=== PATIENT | male | born 1930 | race Caucasian/White ===

== ENCOUNTER 2017-11-23 18:51 | Inpatient (IN) | payer MEDICARE, OTHER ==
[2017-11-23 19:48] LABS: Hemoglobin 13.2 g/dL (14.0-18.0); Mean Corpuscular HGB CONC 33.3 g/dL (32.0-36.0); Mean Corpuscular Hemoglobin 35.3 pg (27.0-31.0); Mean Platelet Volume 8.9 fL (7.4-10.4); Platelet Count 139 thou/uL (130-400); RBC Distribution Width 12.4 % (11.5-14.5); Red Blood Cell (RBC) Count 3.73 mill/uL (4.70-6.10)
[2017-11-23 20:13] LABS: BUN (Urea Nitrogen) 25 mg/dL (8.4-25.7); Calc. Creatinine Clearance 0 mL/min (70-130); Calcium 9.6 mg/dL (7.8-10.44); Carbon Dioxide 25 mmol/L (23-31); Chloride 99 mmol/L (98-107); Estimated GFR-MDRD 44; Glucose 146 mg/dL (83-110); Sodium 135 mmol/L (136-145)
[2017-11-23 20:20] LABS: Potassium 3.8 mmol/L (3.5-5.1)
[2017-11-23 20:22] LABS: #Basophils 0.1 thou/uL (0.0-0.2); #Eosinphils 0.2 thou/uL (0.0-0.7); #Lymphocytes 2.2 thou/uL (1.20-3.40); #Monocytes 0.7 thou/uL (0.11-0.59); #Neutrophils 2.8 thou/uL (1.40-6.50); %Basophils 1.2 % (0.0-1.0); %Eosinophils 3.9 % (0.0-10.0); %Lymphocytes 36.6 % (21.0-51.0); %Monocytes 11.3 % (0.0-10.0); Anion Gap 15 mmol/L (10-20); PLT Morphology Comment Appears Adequate
[2017-11-23] MEDS ORDERED: Acetaminophen 325 MG TAB PO PRN (21:05)
[2017-11-23 21:06] LABS: Troponin I 12.373 ng/mL (< 0.028)
[2017-11-23 22:03] VITALS: BMI 33.1
[2017-11-23] MEDS ORDERED: Enoxaparin Sodium 120 MG/0.8 ML SYRINGE SC SCH (22:30)
[2017-11-23] MEDS: Nitroglycerin 2% Ointment 1 INCH/1 GM Packet TOP SCH (22:34)
[2017-11-23] MEDS ORDERED: Aspirin 325 mg Enteric Coated Tablet PO SCH (23:00)
[2017-11-23] MEDS ORDERED: TRAMADOL HCL PO PRN (23:41)
[2017-11-23] MEDS ORDERED: Acetaminophen 500 MG TAB PO PRN (23:41)
[2017-11-23] MEDS ORDERED: ACETAMINOPHEN PO PRN (23:41)
[2017-11-23] MEDS ORDERED: Ondansetron ODT 4 MG TAB PO PRN (23:41)
[2017-11-23] MEDS ORDERED: Dextrose 50% Abboject 50 ML SYRINGE SLOW IVP PRN (23:41)
[2017-11-23] MEDS ORDERED: Ondansetron HCl/PF 4 MG/2 ML Vial IVP PRN (23:41)
[2017-11-23] MEDS ORDERED: hydrALAZINE 20 MG/ML VIAL SLOW IVP PRN (23:41)
[2017-11-23] MEDS ORDERED: cloNIDine 0.1 MG TAB PO PRN (23:41)
[2017-11-23] MEDS ORDERED: Dextrose 5% in Water 1,000 ML IV PRN (23:41)
[2017-11-23] MEDS ORDERED: HumaLOG 300 UNITS/3 ML VIAL SC PRN ×2 (23:41)
[2017-11-24] MEDS ORDERED: Acetaminophen 325 MG TAB PO PRN (00:02)
[2017-11-24] MEDS ORDERED: traMADol HCl 50 MG TAB PO PRN (00:02)
[2017-11-24 01:14] LABS: Troponin I 18.472 ng/mL (< 0.028)
--- NOTE | 2017-11-24 03:54 | HP ---
DATE OF ADMISSION: 11/23/2017 PRIMARY CARE PROVDER: Sriram Hardy MD CHIEF COMPLAINT: Chest and left arm pain. HISTORY OF PRESENT ILLNESS: This is an 86-year-old male, who presented to [facility] Department experiencing crushing midsternal chest pain with radiation to the left upper extremity beginning approximately 1310 hours on 11/23/2017. The patient states the pain occurred while at res t, sitting in his chair at home, increasing despite moving his arm or adjusting his position. The pa vale states the pain lasted until approximately 1500 hours, at which point, he presented to the [facility] room for evaluation. The patient was treated with sublingual and topical nitroglycerin, and st ates overall his pain had resolved. The patient denied any increased activity level and states that his overall activity level has actually decreased since time frame. 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 The patient denies any known personal history of coronary artery disease, prior heart catheterizations, or evaluation for same. The patient is followed by a agriculture technician of the [facility] and was slated for a transthoracic echocardiogram on 11/24/2017. The patient sta pamela his overall energy level and breathing have been labored and difficult since the hol idays in 2016. The patient is unsure of the reason, but states overall decreased energy level and ra pid shortness of breath with exertion. The patient denied any specific increased lower extremity jovanna ma and states he has chronic swelling of his lower extremities and taking Bumex daily. The patient d oes state that he was treated for a suspected bronchitis in late 09/2017 with antibiotics, prednisone , and metered dose inhalers. The patient denied any associated fever, chills, cough, congestion, or exposure history. The patient denied any recent surgical interventions. In the emergency room, the patient received topical and sublingual nitroglycerin, as well as oxygen supplementation. The patien t also received aspirin 324 mg and transferred to [facility] for further evalu ation. Metabolic evaluation in the emergency room showed an overall troponin trending from 0.2 range to 12.4. The patient currently being admitted for [id number] myocardial infarction. PAST MEDICAL HISTORY: 1. Diabetes mellitus type 2. 2. Osteoarthritis. 3. Hypertension. 4. Chronic lower extremity edema with venous stasis changes. 5. Hyperlipidemia. 6. Diverticulosis. 7. Carpal tunnel syndrome bilaterally. 8. History of deep venous thrombosis of left lower extremity, status post [place] filter placemen t. 9. Chronic atrial fibrillation with chronic anticoagulation with Coumadin. PAST SURGICAL HISTORY: 1. Status post right total knee arthroplasty. 2. Status post carpal tunnel release bilaterally. 3. Status post left total knee arthroplasty. 4. Status post total right hip arthroplasty. CURRENT MEDICATIONS: 1. Bumex 1 mg 1 tab p.o. daily. 2. Calcium carbonate 600 mg p.o. daily. 3. Carvedilol 3.125 mg p.o. b.i.d. 4. Vitamin D3, 50,000 units p.o. p.r.n. 5. Vitamin B12, 1000 mcg intramuscularly every 28 days. 6. Doxycycline 100 mg 1 tab p.o. daily. 7. Chondroitin 1 tablet p.o. daily. 8. Actos 15 mg p.o. daily. 9. Potassium chloride 10 mEq 1 tab p.o. daily. 10. Janumet 50/500 mg 1 tab p.o. b.i.d. 11. Tramadol/acetaminophen 37.5/325 mg 1 tab p.o. q.6 hours p.r.n. pain. 12. Travatan 0.004% ophthalmic drops, 1 drop to each eye at bedtime. 13. Coumadin 5 mg except Tuesday and and 2.5 mg on Tuesday. ALLERGIES: CODEINE. FAMILY HISTORY: No inheritable diseases per patient report. SOCIAL HISTORY: The patient is and resides in [place], [place]. Retired. Functional of [facility] activities of daily living. No current alcohol, tobacco, or illicit drug use. REVIEW OF SYSTEMS: The following complete review of systems was negative, unless otherwise mentioned in the HPI or below: Constitutional: Weight loss or gain, ability to conduct usual activities. Skin: Rash, itching. Eyes: Double vision, pain. ENT/Mouth: Nose bleeding, neck stiffness, pain, tenderness. Cardiovascular: Palpitations, dyspnea on exertion, orthopnea. Respiratory: Shortness of breath, wheezing, cough, hemoptysis, fever or night sweats. Gastrointestinal: Poor appetite, abdominal pain, heartburn, nausea, vomiting, constipation, or diarr hea. Genitourinary: Urgency, frequency, dysuria, nocturia. Musculoskeletal: Pain, swelling. Neurologic/Psychiatric: Anxiety, depression. Allergy/Immunologic: Skin rash, bleeding tendency. Otherwise negative except as stated per HPI. PHYSICAL EXAMINATION: VITAL SIGNS: On admission, blood pressure 138/90, pulse 80, respiratory rate 20, temperature 98.6 de grees Fahrenheit, O2 saturation 99% on room air. GENERAL APPEARANCE: This is an 86-year-old male, alert and oriented x3, pleasant, conversa nt, in no acute distress. HEENT: Pupils are equal, round, and reactive to light and accommodation. Extraocular muscles are in tact. No scleral icterus. No conjunctival injection. Nares patent. OP is clear. Teeth in fair re pair. NECK: Supple. No cervical adenopathy. No thyromegaly. No carotid bruits. No JVD appreciated. Ce rvical spine with full active and passive range of motion. CHEST: Diminished breath sounds in the bases bilaterally. CARDIOVASCULAR: S1, S2 with irregular rate and rhythm. ABDOMEN: Rounded, soft, nontender, and nondistended. Bowel sounds are positive in all four quadrant s. There is no hepatosplenomegaly. No abdominal bruits. No rebound or guarding appreciated. EXTREMITIES: Warm and dry with fair turgor. Pitting edema to the proximal shins with venous stasis changes to bilateral lower extremities. Pulses are diminished and palpable distally at the dorsalis pedis and posterior tibial arteries. Capillary refill is less than 2 seconds. NEUROLOGIC: Cranial nerves II-XII are grossly intact. No focal or lateralizing signs are appreciate d. PERTINENT LABORATORY AND X-RAY FINDINGS: Creatinine 1.51. Estimated GFR of 44. Troponin I ranged b etween 0.215-12.4. LFTs within normal limits. CBC showed a white blood cell count of 6.82, hemoglob in 14, hematocrit 42, MCV 101, platelet count 148. PT 21.8, INR 1.8. D-dimer is 0.99. BNP is 911. EKG dated 11/23/2017 by my interpretation shows atrial fibrillation with heart rates in the 80s. Att enuated R waves noted in precordial leads. Left bundle branch block pattern noted. No acute ST-T wa ve changes appreciated. ASSESSMENT AND PLAN: 1. [id number] myocardial infarction. The patient will be admitted to the telemetry unit. We will initiate Lovenox 1 mg/kg subcutaneously q.12 hours. Continue aspirin 325 mg p.o. daily. Nitrog lycerin transdermally q.6 hours. Continue carvedilol 3.125 mg p.o. b.i.d. Check fasting lipid fawad torres in the a.m. Consult Cardiology Service for left heart catheterization. Continue oxygen at 2 lite rs per minute by nasal cannula. 3. Chronic atrial fibrillation with controlled ventricular response. Continue rate control measures with Coreg 3.125 mg p.o. b.i.d. Hold Coumadin. Continue Lovenox as outlined previously. Check 2D transthoracic echocardiogram in the a.m. 4. Chronic kidney disease, stage 3. We will avoid nephrotoxic agents and contrast media. Limit diu retic exposure. Hold metformin. Repeat creatinine in the a.m. 5. Left bundle branch block. Exact time course, unclear versus acute/subacute or chronic. We will obtain Cardiology consultation for evaluation and likely left heart catheterization. 6. Prophylaxis. Sequential compression devices while in bed. Pepcid 20 mg p.o. b.i.d. 7. Code status is FULL. Surrogate medical decision maker is patient's spouse.
[2017-11-24 04:59] LABS: INR-International Normal Ratio 1.9; Prothrombin Time 22.3 SEC (12.0-14.7)
[2017-11-24 05:06] LABS: Anion Gap 12 mmol/L (10-20); BUN (Urea Nitrogen) 24 mg/dL (8.4-25.7); Calc. Creatinine Clearance 60 mL/min (70-130); Calcium 9.5 mg/dL (7.8-10.44); Carbon Dioxide 29 mmol/L (23-31); Cardiac Risk 3.4 (Less than 4.5); Chloride 102 mmol/L (98-107); Cholesterol 141 mg/dl (< 200 Desired); Estimated GFR-MDRD 47; Glucose 157 mg/dL (83-110); HDL Cholesterol 41 mg/dL (>60 Neg Risk); LDL Cholesterol, Calculated 83 mg/dL; Potassium 4.1 mmol/L (3.5-5.1); Sodium 139 mmol/L (136-145); Triglycerides 87 mg/dL (Less than 150)
[2017-11-24 06:07] LABS: Band 2 % (5-11); Eosinophils 5 % (0-10); Hemoglobin 12.3 g/dL (14.0-18.0); Lymphocytes 33 % (21-51); MDiff Complete? YES; Macrocytosis SLIGHT = 6-15 cells (100X) (0-5/hpf); Mean Corpuscular HGB CONC 32.5 g/dL (32.0-36.0); Mean Corpuscular Hemoglobin 34.6 pg (27.0-31.0); Mean Platelet Volume 8.9 fL (7.4-10.4); Monocytes 7 % (0-10); Neutrophil 52 % (42-75); PLT Morphology Comment Appears Adequate; Platelet Count 131 thou/uL (130-400); RBC Distribution Width 12.4 % (11.5-14.5); Reactive Lymphocytes 1 % (0-10); Red Blood Cell (RBC) Count 3.56 mill/uL (4.70-6.10)
[2017-11-24] MEDS: Nitroglycerin 2% Ointment 1 INCH/1 GM Packet TOP SCH ×4 (06:10→21:58)
--- NOTE | 2017-11-24 07:49 | PDOC.PN ---
- Subjective Encounter Start Date: 11/24/17 Encounter Start Time: 07:47 Subjective: 100min chest kary with radiation to L arm yesterday - Objective Resuscitation Status: Resuscitation Status FULL:Full Resuscitation Vital Signs & Weight: Vital Signs (12 hours) Temp Pulse Resp BP BP BP Pulse Ox 11/24/17 06:35 82 18 133/88 100 11/24/17 04:29 97.7 F 65 18 120/86 98 11/23/17 23:41 80 18 97 11/23/17 23:34 97.2 F L 76 20 130/83 97 I&O: 11/23/17 11/24/17 11/25/17 06:59 06:59 06:59 Intake Total 360 Balance 360 Result Diagrams: 11/24/17 04:19 11/24/17 04:19 Phys Exam - Physical Examination Constitutional: NAD Neck: no JVD Respiratory: clear to auscultation bilateral Cardiovascular: irregular Gastrointestinal: soft, non-tender, positive bowel sounds Musculoskeletal: no edema Dx/Plan (1) ACS (acute coronary syndrome) Code(s): I24.9 - ACUTE ISCHEMIC HEART DISEASE, UNSPECIFIED Status: Acute (2) Atrial fibrillation Code(s): I48.91 - UNSPECIFIED ATRIAL FIBRILLATION Status: Chronic Qualifiers: Atrial fibrillation type: chronic Qualified Code(s): I48.2 - Chronic atrial fibrillation (3) DM type 2 causing CKD stage 3 Code(s): E11.22 - TYPE 2 DIABETES MELLITUS W DIABETIC CHRONIC KIDNEY DISEASE; N18.3 - CHRONIC KIDNEY DISEASE, STAGE 3 (MODERATE) Status: Chronic (4) HTN (hypertension) Code(s): I10 - ESSENTIAL (PRIMARY) HYPERTENSION Status: Acute Qualifiers: Hypertension type: essential hypertension Qualified Code(s): I10 - Essential (primary) hypertension (5) Left bundle branch block Code(s): I44.7 - LEFT BUNDLE-BRANCH BLOCK, UNSPECIFIED Status: Acute - Plan cardiology consult, discusssed with Dr Garber. patient will need cardiac -: cath. cont asa, coreg. accu/sss/etc * .
[2017-11-24] MEDS ORDERED: Communication Order-Pharmacy FS SCH (08:00)
[2017-11-24] MEDS ORDERED: Sodium Chloride 0.9% 1,000 ML IV SCH (08:00)
[2017-11-24] MEDS ORDERED: Bumetanide 1 MG TAB PO SCH (09:00)
[2017-11-24] MEDS ORDERED: Cyanocobalamin 1000 MCG/ML VIAL IM SCH (09:00)
[2017-11-24] MEDS ORDERED: Carvedilol 3.125 MG TAB PO SCH (09:00)
[2017-11-24] MEDS ORDERED: FLU VACC TS2017-18 (>65YR) 0.5 ML SYRINGE IM ONE (09:00)
[2017-11-24 11:22] LABS: INR-International Normal Ratio 1.7; Prothrombin Time 20.8 SEC (12.0-14.7)
[2017-11-24] MEDS: Doxycycline 100 MG CAP PO SCH (12:39)
[2017-11-24] MEDS: Aspirin 325 MG TAB PO SCH (12:39)
[2017-11-24] MEDS: Calcium Carbonate + Vit D 1 TAB PO SCH (12:39)
[2017-11-24] MEDS: Famotidine 20 MG TAB PO SCH ×2 (12:39→20:51)
[2017-11-24] MEDS: Potassium Chloride 10 MEQ TAB PO SCH (12:40)
[2017-11-24] MEDS ORDERED: Enoxaparin Sodium 100 MG/ML SYRINGE SC SCH (16:00)
--- NOTE | 2017-11-24 19:35 | CON ---
DATE OF CONSULTATION: 11/24/2017 REASON FOR CONSULTATION: Non-ST elevation myocardial infarction, congestive heart failure, atrial fi brillation. HISTORY OF PRESENT ILLNESS: Mr. Doran is a very pleasant 86-year-old gentleman. He had the onse t of severe pain across his chest yesterday. He said it lasted he thinks maybe for almost 2 hours, w ent away at 3:00. He went to the emergency room for evaluation. He was given sublingual and topical nitroglycerin. The pain resolved. He has been feeling well since then. He says before that he has noticed he has not been feeling as well since . He says he does not have as much energy . 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 The patient states he sees a systems accountant in [place], had an echocardiogram done recently he belie ves, but he is not completely sure about that. He noticed that he is becoming more short of breath with exertion and had some swelling of his lower extremities. He has been placed on Bumex at some point in the past. The patient also has a history of atrial fibrillation chronic for which he is on Coumadin. PAST MEDICAL HISTORY: 1. Diabetes. 2. Osteoarthritis. 3. Chronic edema. 4. Hyperlipidemia. 5. Diverticulosis. 6. History of deep venous thrombosis, has a [place] filter placed. 7. Chronic atrial fibrillation on Coumadin. PAST SURGICAL HISTORY: 1. Previous total right knee. 2. Left knee. 3. Right hip arthroplasty. MEDICATIONS: 1. Bumex 1 mg a day. 2. Carvedilol 3.125 mg twice a day. 3. Doxycycline. 4. Actos. 5. Coumadin. ALLERGIES: CODEINE. FAMILY HISTORY: No coronary disease at a young age. SOCIAL HISTORY: , resides in [place], [place]. REVIEW OF SYSTEMS: Constitutional: No significant weight gain or loss. Vision: No changes. Hear ing: No changes. Pulmonary: No cough or wheezing. Cardiac: As outlined above. Gastrointestinal: No nausea, vomiting, or diarrhea. Skin: No rashes. Neurologic: No unilateral weakness or numbne ss. Psychiatric: No unusual depression or anxiety. Hematologic: No unusual bruising. Genitourina ry: No burning with urination. Musculoskeletal: No unusual joint pains. PHYSICAL EXAMINATION: GENERAL: This is a pleasant elderly gentleman in no distress, feeling well now. VITAL SIGNS: Blood pressure variable, most recently at 150/75, pulse is anywhere between 50-80. He has had some nonsustained ventricular tachycardia, has also had some bradycardia. EYES: Sclerae anicteric. Mouth mucous membranes are moist. NECK: Supple, no lymphadenopathy. LUNGS: Clear, no wheezing, rales, or rhonchi. CARDIAC: Irregularly irregular. No murmur, rub, or gallop. ABDOMEN: Soft, nontender, no hepatosplenomegaly. EXTREMITIES: Warm and dry. No clubbing, cyanosis, or edema. Has good femoral pulse on the right, g ood popliteal pulse on the right. Pulses seem to be diminished in the feet. PERTINENT LABORATORY AND X-RAY FINDINGS: The creatinine has gone from 1.51-1.44, GFR is 47. Most re cently troponin level 18.4. LDL is 83. BNP 910. Echocardiogram showed severely depressed left vent ricular function with an ejection fraction of 15%-20%. There is moderate mitral and tricuspid insuff iciency. CONCLUSION: 1. Status post non-ST elevation infarction. 2. Chronic left bundle branch block. 3. Chronic atrial fibrillation. 4. Congestive heart failure, systolic, chronic. 5. Renal failure stage 3. PLAN: 1. To proceed to cardiac catheterization. We will do this tomorrow to allow the INR to come down fu rther; it is 1.9 early this morning, 1.7 recently. Discussed risks of stroke, heart attack, iodine a llergy, loss of blood supply to the leg or kidney, stent thrombosis, stent restenosis. He understand s and wishes to proceed. 2. We will need to stop carvedilol due to the bradycardia. 3. Cannot use LILI inhibitors or angiotensin receptor blockers or beta-blockers at the present time d ue to renal insufficiency and bradycardia. 4. We will give one further dose of Lovenox this evening. 5. Further recommendations based on current hospital course.
[2017-11-24] MEDS: Atorvastatin Calcium 40 MG TAB PO SCH (20:51)
[2017-11-24] MEDS: Latanoprost 0.005% Ophth Soln 2.5 ml Bottle EA EYE SCH (20:53)
[2017-11-25 05:21] LABS: INR-International Normal Ratio 1.7; Prothrombin Time 20.8 SEC (12.0-14.7)
[2017-11-25] MEDS: Calcium Carbonate + Vit D 1 TAB PO SCH (05:42)
[2017-11-25] MEDS: Aspirin 325 MG TAB PO SCH (05:43)
[2017-11-25] MEDS: Potassium Chloride 10 MEQ TAB PO SCH (05:43)
[2017-11-25] MEDS: Famotidine 20 MG TAB PO SCH ×2 (05:43→22:16)
[2017-11-25] MEDS: Doxycycline 100 MG CAP PO SCH (05:43)
[2017-11-25] MEDS: Nitroglycerin 2% Ointment 1 INCH/1 GM Packet TOP SCH ×2 (05:44→12:00)
[2017-11-25] MEDS ORDERED: Sodium Chloride 0.9% 1,000 ML IV SCH ×2 (06:00→06:58)
[2017-11-25] MEDS ORDERED: Phytonadione 10 MG/ML AMP SC SCH (06:45)
[2017-11-25 10:40] LABS: INR-International Normal Ratio 1.6
[2017-11-25] MEDS ORDERED: Iopamidol 370 76% 100 ML VIAL ONE (11:30)
[2017-11-25] MEDS ORDERED: Nitroglycerin 0.4 MG TAB (25 Tab Bottle) SL PRN (12:34)
--- NOTE | 2017-11-25 12:37 | PDOC.PN ---
- Subjective Encounter Start Date: 11/25/17 Encounter Start Time: 08:00 Pt seen for followup re: NSTEMI. Denies chest pain, shortness of breath, fevers or chills. - Objective Resuscitation Status: Resuscitation Status FULL:Full Resuscitation MAR Reviewed: Yes Vital Signs & Weight: Vital Signs (12 hours) Temp Pulse Pulse Pulse Resp BP BP 11/25/17 11:00 98.6 F 74 20 11/25/17 09:35 77 85 128/83 126/77 11/25/17 08:00 96.1 F L 68 18 11/25/17 07:12 96.1 F L 68 18 11/25/17 04:00 98.3 F 67 19 BP BP Pulse Ox Pulse Ox Pulse Ox 11/25/17 11:00 125/77 97 11/25/17 09:35 98 98 11/25/17 08:00 100 11/25/17 07:12 100 11/25/17 04:00 129/83 92 L Weight Weight 245 lb 14.4 oz I&O: 11/24/17 11/25/17 11/26/17 06:59 06:59 06:59 Intake Total 360 1040 Output Total 825 Balance 360 215 Result Diagrams: 11/24/17 04:19 11/24/17 04:19 Additional Labs: Accuchecks 11/25/17 11/25/17 11/24/17 11:02 05:59 20:07 POC Glucose 142 H 128 H 177 H 11/24/17 16:54 POC Glucose 137 H EKG Reviewed by me: Yes (Tele: jovita jenkins) Phys Exam - Physical Examination Constitutional: NAD HEENT: moist MMs Neck: supple Respiratory: clear to auscultation bilateral Cardiovascular: irregular Gastrointestinal: soft Musculoskeletal: pulses present Neurological: moves all 4 limbs Psychiatric: normal affect Skin: no rash Dx/Plan (1) NSTEMI (non-ST elevated myocardial infarction) Code(s): I21.4 - NON-ST ELEVATION (NSTEMI) MYOCARDIAL INFARCTION Status: Acute (2) HTN (hypertension) Code(s): I10 - ESSENTIAL (PRIMARY) HYPERTENSION Status: Chronic Qualifiers: Hypertension type: essential hypertension Qualified Code(s): I10 - Essential (primary) hypertension (3) Atrial fibrillation Code(s): I48.91 - UNSPECIFIED ATRIAL FIBRILLATION Status: Chronic Qualifiers: Atrial fibrillation type: chronic Qualified Code(s): I48.2 - Chronic atrial fibrillation (4) DM type 2 causing CKD stage 3 Code(s): E11.22 - TYPE 2 DIABETES MELLITUS W DIABETIC CHRONIC KIDNEY DISEASE; N18.3 - CHRONIC KIDNEY DISEASE, STAGE 3 (MODERATE) Status: Chronic - Plan plan discussed w/ family * . Pt awaiting cardiac cath. Monitor vital signs, titrate antihypertensives as needed. Continue accuchecks, insulin sliding scale. Review of Systems - Review of Systems Respiratory: negative: Cough, Dry, Shortness of Breath, Hemoptysis, SOB with Excertion, Pleuritic Pain, Sputum, Wheezing Cardiovascular: negative: chest pain, palpitations, orthopnea, paroxysmal nocturnal dyspnea, edema, light headedness - Medications/Allergies Allergies/Adverse Reactions: Allergies Allergy/AdvReac Type Severity Reaction Status Date / Time codeine Allergy Verified 11/23/17 21:25 Medications: Current Medications Acetaminophen (Tylenol) 1,000 mg PO Q6H PRN PRN Reason: Headache/Fever or Mild Pain Acetaminophen (Tylenol) 325 mg PO Q6H PRN PRN Reason: Pain Aspirin (Aspirin) 325 mg PO DAILY [facility] Last Admin: 11/25/17 05:43 Dose: 325 mg Atorvastatin Calcium (Lipitor) 40 mg PO QPM [facility] Last Admin: 11/24/17 20:51 Dose: 40 mg Calcium/Vitamin D (Caltrate 600 + Vit D) 1 tab PO DAILY [facility] Last Admin: 11/25/17 05:42 Dose: 1 tab Clonidine (Catapres) 0.1 mg PO Q4H PRN PRN Reason: Systolic BP > 180 Cyanocobalamin (Vitamin B-12) 1,000 mcg IM Q28D [facility] Last Admin: 11/24/17 12:39 Dose: 1,000 mcg Dextrose/Water (Dextrose 50%) 25 gm SLOW IVP PRN PRN PRN Reason: Hypoglycemia Doxycycline Hyclate (Vibramycin) 100 mg PO DAILY [facility] Last Admin: 11/25/17 05:43 Dose: 100 mg Famotidine (Pepcid) 20 mg PO BID [facility] Last Admin: 11/25/17 05:43 Dose: 20 mg Glucagon (Glucagon) 1 mg IM PRN PRN PRN Reason: Hypoglycemia Hydralazine HCl (Apresoline) 10 mg SLOW IVP Q4H PRN PRN Reason: Systolic BP > 180 Dextrose/Water (D5w) 1,000 mls @ 0 mls/hr IV .Q0M PRN; As Directed PRN Reason: Hypoglycemia Sodium Chloride (Normal Saline 0.9%) 1,000 mls @ 50 mls/hr IV .Q20H [facility] Last Admin: 11/25/17 07:07 Dose: Not Given Insulin Human Lispro (Humalog) 0 units SC .MODERATE SLIDING SC PRN PRN Reason: Moderate Correctional Scale Insulin Human Lispro (Humalog) 0 units SC .BEDTIME SLIDING SC PRN PRN Reason: Bedtime Correctional Scale Latanoprost (Xalatan 0.005% Ophth Soln) 1 drop EA EYE QPM [facility] Last Admin: 11/24/17 20:53 Dose: 1 drop Nitroglycerin (Nitro-Bid 2% Ointment) 1 inch TOP Q6HR [facility] Last Admin: 11/25/17 05:44 Dose: 1 inch Ondansetron HCl (Zofran Odt) 4 mg PO Q6H PRN PRN Reason: Nausea/Vomiting Ondansetron HCl (Zofran) 4 mg IVP Q6H PRN PRN Reason: Nausea/Vomiting Potassium Chloride (Klor-Con 10) 10 meq PO DAILY [facility] Last Admin: 11/25/17 05:43 Dose: 10 meq Sodium Chloride (Flush - Normal Saline) 10 ml IVF PRN PRN PRN Reason: Saline Flush Last Admin: 11/24/17 20:52 Dose: 10 ml Tramadol HCl (Ultram) 50 mg PO Q6H PRN PRN Reason: Pain
[2017-11-25] MEDS ORDERED: Sodium Chloride 0.9% 200 ML IV SCH (12:45)
[2017-11-25] MEDS: Carvedilol 3.125 MG TAB PO SCH (18:02)
--- NOTE | 2017-11-25 19:07 | PRG ---
DATE OF SERVICE: 09/25/2017 HISTORY: Mr. Doran underwent cardiac catheterization today. The results are as outlined below. The patient continues to have some shortness of breath intermittently. No chest pain currently. PHYSICAL EXAMINATION: VITAL SIGNS: Blood pressure 117/84, pulse 60-75, is atrial fibrillation which is chronic. LUNGS: Clear. CARDIAC: Irregularly irregular. ABDOMEN: Soft, nontender. EXTREMITIES: No edema. PERTINENT LABORATORY: Creatinine is 1.44, estimated GFR is 47. The INR today was 1.6. Cardiac catheterization revealed that he has an ejection fraction of 20%, which correlates with the e chocardiogram. The tip of the apex and distal inferior wall are akinetic, otherwise global hypokines is. The coronaries to the left main, there is no obstructive stenosis. The LAD has a 50% proximal l esion, 70% discrete mid lesion, 90% distal lesion. Length of the distal lesion is too small to stent that the vessel is too small there. No intervention was done today. His predominant symptom appears to be congestive heart failure. The patient also has a left bundle-branch block. Patient has had a complicated sequence of problems which include the following 1. Congestive heart failure, systolic, acute on chronic. The left ventricle is dilated, but the dis frandy wall motion abnormality. No new ejection fraction is 20%. 2. Atrial fibrillation, chronic. 3. Left bundle-branch block. 4. Coronary artery disease. 5. Renal insufficiency/failure stage 3. PLAN: 1. We will resume low-dose carvedilol 3.125 mg twice a day. 2. We really probably cannot tolerate LILI inhibitors at least more than just a low dose with his cre atinine like this, although it could be instituted as an outpatient. 3. We will change him from Coumadin to Xarelto. 4. Consideration for biventricular pacemaker defibrillator. 5. Recommend LifeVest. 6. If ejection fraction improves later, some consideration could be made at some point for intervent ion of the LAD, but in view of contrast exposure in heart failure did not proceed with that today, th e distal lesion I think is too small to stent, the mid lesion probably will be distended, although as mentioned, the patient has renal insufficiency and elected not to proceed with that currently. 7. Unfortunately, probably will not have much improvement in left ventricular function until he can have a biventricular pacemaker defibrillator as he can tolerate only very low doses of beta blockers and LILI inhibitors will need to be followed closely. The patient states he has a ambulatory care nurse. He w mike to follow up within the [place] area. We will give him a copy of this note with the copy of e diagram and if they wish, they can also request a copy of the CD of the cardiac catheterization fro jose e Moya. It should be noted that the iliacs are extremely tortuous and intervention may be easier fr om the wrist and such chosen to be done. He had to use a long "destination" sheath to avoid tortuosi ty and successfully complete the catheterization. PROGNOSIS: [facility] is guarded. Family is aware.
[2017-11-25] MEDS: Latanoprost 0.005% Ophth Soln 2.5 ml Bottle EA EYE SCH (22:16)
[2017-11-25] MEDS: Atorvastatin Calcium 40 MG TAB PO SCH (22:16)
[2017-11-26 05:38] LABS: Anion Gap 13 mmol/L (10-20); BUN (Urea Nitrogen) 17 mg/dL (8.4-25.7); Calc. Creatinine Clearance 62 mL/min (70-130); Calcium 9.5 mg/dL (7.8-10.44); Carbon Dioxide 24 mmol/L (23-31); Chloride 104 mmol/L (98-107); Estimated GFR-MDRD 50; Glucose 152 mg/dL (83-110); Potassium 4.3 mmol/L (3.5-5.1); Sodium 137 mmol/L (136-145)
[2017-11-26 05:51] LABS: #Eosinphils 0.1 thou/uL (0.0-0.7); #Lymphocytes 1.6 thou/uL (1.20-3.40); #Monocytes 0.6 thou/uL (0.11-0.59); #Neutrophils 2.8 thou/uL (1.40-6.50); %Basophils 0.5 % (0.0-1.0); %Lymphocytes 31.3 % (21.0-51.0); %Monocytes 11.9 % (0.0-10.0); %Neutrophils 54.4 % (42.0-75.0); Hemoglobin 13.2 g/dL (14.0-18.0); Mean Corpuscular HGB CONC 32.9 g/dL (32.0-36.0); Mean Platelet Volume 9.1 fL (7.4-10.4); PLT Morphology Comment Appears Decreased; Platelet Count 113 thou/uL (130-400); RBC Distribution Width 12.5 % (11.5-14.5); Red Blood Cell (RBC) Count 3.75 mill/uL (4.70-6.10); White Blood Cell (WBC) Count 5.2 thou/uL (4.8-10.8)
[2017-11-26] MEDS: Carvedilol 3.125 MG TAB PO SCH ×2 (08:46→16:55)
[2017-11-26] MEDS: Doxycycline 100 MG CAP PO SCH (08:47)
[2017-11-26] MEDS: Famotidine 20 MG TAB PO SCH (08:47)
[2017-11-26] MEDS: Potassium Chloride 10 MEQ TAB PO SCH (08:47)
[2017-11-26] MEDS: Calcium Carbonate + Vit D 1 TAB PO SCH (08:47)
[2017-11-26] MEDS ORDERED: Bumetanide 1 MG TAB PO SCH (09:00)
--- NOTE | 2017-11-26 13:27 | EKG ---
Test Reason : CP Blood Pressure : / mmHG Vent. Rate : 086 BPM Atrial Rate : 046 BPM P-R Int : 000 ms QRS Dur : 146 ms QT Int : 434 ms P-R-T Axes : 000 -20 045 degrees QTc Int : 519 ms Atrial fibrillation Left bundle branch block Abnormal ECG Confirmed by TERRY TEIXEIRA ([id number]), features editor JOEY WATSON ([id number]) on 11/26/2017 1:27:29 PM Referred By: Confirmed By:TERRY TEIXEIRA
[2017-11-26 13:54] LABS: INR-International Normal Ratio 1.4; Prothrombin Time 17.6 SEC (12.0-14.7)
--- NOTE | 2017-11-26 15:59 | DIS ---
DATE OF ADMISSION: 11/23/2017 DATE OF DISCHARGE: 11/26/2017 PRIMARY CARE PROVIDER: Sriram Hardy M.D. DISCHARGE DIAGNOSES: 1. Coronary artery disease. 2. Acute on chronic systolic congestive heart failure, ejection fraction 20%. 3. Chronic atrial fibrillation. 4. Renal insufficiency. 5. Non-ST elevation myocardial infarction. CONSULTATIONS DURING THIS HOSPITALIZATION: Cardiology, Dr. Garber. CONDITION OF PATIENT ON THE DAY OF DISCHARGE: Stable. I assessed Ms. Doran on the day of discha rge. He denies any chest pain. He reports shortness of breath with exertion. He denies any cough, fevers or chills. PHYSICAL EXAMINATION: VITAL SIGNS: Stable. HEART: S1 and S2 are heard, irregular. LUNGS: Clear to auscultation bilaterally. DISCHARGE MEDICATIONS: Rivaroxaban 20 mg daily as ordered by Cardiology Service, aspirin 81 mg daily , Lipitor 40 mg every evening, bumetanide 1 mg daily, calcium carbonate/vitamin D 1 tablet daily, Cor eg 3.125 mg 2 times a day, vitamin D3 50,000 units daily, vitamin B12 1000 mcg intramuscularly every month, doxycycline 100 mg daily, glucosamine/chondroitin 1 tablet daily, lisinopril 2.5 mg daily, sta rted during this hospitalization, Actos 15 mg daily, tramadol/acetaminophen p.r.n., Travatan Z eyedro ps. HOSPITAL COURSE: Mr. Doran is a pleasant 87-year-old gentleman who was admitted to [facility] for acute on chronic systolic congestive heart failure as well as elevated tropo jaya. He was seen by Cardiology Service. He was treated with anticoagulation. He underwent 2D echoc ardiogram on 11/23/2017, which showed left ventricular ejection fraction of 15%-20%, atrial fibrillat ion and normal right ventricular size and function. He underwent cardiac catheterization on 11/25/20 17, which showed left ventricular ejection fraction of 20%, akinetic tip of the apex and distal infer ior wall, otherwise global hypokinesis. LAD had 50% proximal lesion, 70% discrete mid lesion and 90% distal lesion. He was recommended medical management. He has been started on LILI inhibitors and hi s beta alireza was continued. He is advised to have his creatinine and electrolytes checked through his primary care physician's office. His Janumet is on hold at this time, once creatinine improves, it can be restarted. On the day of discharge, he has sodium 137, potassium 4.3, creatinine 1.35 decreased from 1.51 on , white count 5,200, hemoglobin 13.2, and platelet count 113,000. He is advised to follow up with his primary care provider in 3-5 days as well as with his cardiologis t in [place]. He was fitted with a LifeVest prior to discharge. Many thanks for allowing me to participate in your patient's care. Please feel free to contact me wi th any questions or concerns. DISCHARGE DESTINATION: Home. TOTAL AMOUNT OF TIME SPENT COORDINATING THIS DISCHARGE: 33 minutes.
[2017-11-26 16:40] VITALS: TEMP 98.4
[2017-11-26 16:42] VITALS: BP 129/81
[2017-11-27] MEDS ORDERED: Lisinopril 2.5 MG TAB PO SCH (09:00)
== END 2017-11-26 17:51 | disposition home or self-care (01) | DRG 280 ==
LOC: ERS 18:51 → 2SW 19:40 → OBSVTOIN 22:26 → 2NO 11-24 07:12
PROVIDERS: ADMIT Family Medicine; ATTEND Family Medicine
PROC: 4A023N7 Measurement of Cardiac Sampling and Pressure, Left Heart, Percutaneous Approach (ICD-10-PCS; principal; 2017-11-25)
PROC: B2111ZZ Fluoroscopy of Multiple Coronary Arteries using Low Osmolar Contrast (ICD-10-PCS; 2017-11-25)
PROC: B3101ZZ Fluoroscopy of Thoracic Aorta using Low Osmolar Contrast (ICD-10-PCS; 2017-11-25)
DX: I21.4 Non-ST elevation (NSTEMI) myocardial infarction (principal); I50.23 Acute on chronic systolic (congestive) heart failure; I48.2 Chronic atrial fibrillation; E11.22 Type 2 diabetes mellitus with diabetic chronic kidney disease; I13.0 Hypertensive heart and chronic kidney disease with heart failure and stage 1 through stage 4 chronic kidney disease, or unspecified chronic kidney disease; E11.9 Type 2 diabetes mellitus without complications; I44.7 Left bundle-branch block, unspecified; N18.3 Chronic kidney disease, stage 3 (moderate); I25.10 Atherosclerotic heart disease of native coronary artery without angina pectoris; E78.5 Hyperlipidemia, unspecified; M19.90 Unspecified osteoarthritis, unspecified site
CPT/HCPCS: 36415; 36416; 76942; 80048; 80061; 83880; 84484; 85007; 85025; 85027; 85610; 90471; 90682; 93005; 93306; 93458; 93798; 94660; C1769; G0008; J1644; J1650; J3420; J3430; Q2036